=== PATIENT | female | born 1945 | race Hispanic/Latino ===

== ENCOUNTER → 2017-11-07 | Outpatient (CLI) | payer OTHER ==
[~2017-11-07] MED LIST: ASPI-555 PO; ATORVASTATIN; CALCIUM; GLUCOSAMINE; IOPAMIDOL-370 75 ML VIAL IV ONE; LOSARTAN; METFORMIN; METOPROLOL; MULTIVITAMIN; PANT40TA25 PO
== END ==
LOC: OIH 08:37
PROVIDERS: ATTEND Internal Medicine Cardiovascular Disease
DX: I70.0 Atherosclerosis of aorta (principal); K44.9 Diaphragmatic hernia without obstruction or gangrene; M41.9 Scoliosis, unspecified
CPT/HCPCS: 71275; Q9967

== ENCOUNTER → 2018-01-31 | Outpatient (CLI) | payer OTHER ==
[~2018-01-31] MED LIST changes: -IOPAMIDOL-370 75 ML VIAL IV ONE
== END | disposition home or self-care (01) ==
LOC: RAH 09:42
PROVIDERS: ATTEND Internal Medicine Gastroenterology
DX: R13.12 Dysphagia, oropharyngeal phase (principal); R63.3 Feeding difficulties
CPT/HCPCS: 74230; 92611

== ENCOUNTER 2018-02-13 06:18 | Day surgery (SDC) | payer OTHER ==
[~2018-02-13] VITALS: Ht 149.9 cm; Wt 72.1 kg
[~2018-02-13 06:18] MED LIST changes: -ASPI-555 PO; -ATORVASTATIN; -CALCIUM; -GLUCOSAMINE; -LOSARTAN; -METFORMIN; -METOPROLOL; -MULTIVITAMIN; -PANT40TA25 PO; +SODIUM CHLORIDE 0.9% 1000ML 1,000 ML IV ONE
[2018-02-13 07:07] VITALS: BP 143/69
[2018-02-13] MEDS ORDERED: CALCIUM (07:28)
[2018-02-13] MEDS ORDERED: MULTIVITAMIN (07:28)
[2018-02-13] MEDS ORDERED: METOPROLOL (07:28)
[2018-02-13] MEDS ORDERED: METFORMIN (07:28)
[2018-02-13] MEDS ORDERED: PANT40TA25 PO (07:28)
[2018-02-13] MEDS ORDERED: ASPI-555 PO (07:28)
[2018-02-13] MEDS ORDERED: GLUCOSAMINE (07:28)
[2018-02-13] MEDS ORDERED: LOSARTAN (07:28)
[2018-02-13] MEDS ORDERED: ATORVASTATIN (07:28)
[2018-02-13 08:08] VITALS: BP 116/57
[2018-02-13 08:33] VITALS: BP 129/57
== END 2018-02-13 08:58 ==
LOC: DAH 06:18
PROVIDERS: ATTEND Internal Medicine Gastroenterology
DX: K21.0 Gastro-esophageal reflux disease with esophagitis (principal); K31.7 Polyp of stomach and duodenum; K44.9 Diaphragmatic hernia without obstruction or gangrene; K58.0 Irritable bowel syndrome with diarrhea; E11.9 Type 2 diabetes mellitus without complications; E78.5 Hyperlipidemia, unspecified; I10 Essential (primary) hypertension; I71.4 Abdominal aortic aneurysm, without rupture; Z68.31 Body mass index [BMI] 31.0-31.9, adult; Z79.84 Long term (current) use of oral hypoglycemic drugs; Z79.899 Other long term (current) drug therapy
CPT/HCPCS: 43239; 82948 ×2; 88305; 88312; 93005; A4606; J7030; 92611

== ENCOUNTER → 2023-07-26 | Outpatient (CLI) | payer MEDICARE ==
[~2023-07-26] MED LIST changes: +ASPI-556 PO; +ATORVASTATIN; +CALCIUM; +GLUCOSAMINE; +LOSARTAN; +METFORMIN; +METOPROLOL; +MULTIVITAMIN; +PANT40TA54 PO; -SODIUM CHLORIDE 0.9% 1000ML 1,000 ML IV ONE
== END | disposition home or self-care (01) ==
LOC: OIH 11:25
PROVIDERS: ATTEND Family Medicine
DX: M17.11 Unilateral primary osteoarthritis, right knee (principal); M25.561 Pain in right knee
CPT/HCPCS: 73562

== ENCOUNTER → 2023-10-05 | Outpatient (CLI) | payer MEDICARE | END | disposition home or self-care (01) | LOC: RAH 09:46 | PROVIDERS: ATTEND Internal Medicine Gastroenterology | DX: K44.9 Diaphragmatic hernia without obstruction or gangrene (principal); R13.10 Dysphagia, unspecified | CPT/HCPCS: 74240 ==

== ENCOUNTER → 2024-04-30 | Outpatient (CLI) | payer MEDICARE ==
[~2024-04-30] MED LIST changes: +IOHEXOL 350 MG/ML 100ML INFUS..BTL IV ONE; +METOPROLOL TARTRATE 1 MG/ML 5ML VIAL IV ONE
== END | disposition home or self-care (01) ==
LOC: RAH 07:35
PROVIDERS: ATTEND Internal Medicine Cardiovascular Disease
DX: I20.9 Angina pectoris, unspecified (principal); M47.815 Spondylosis without myelopathy or radiculopathy, thoracolumbar region
CPT/HCPCS: 75574; J3490 ×2; Q9967